=== PATIENT | female | born 1970 | race Caucasian/White ===

== ENCOUNTER → 2018-11-14 | Outpatient (CLI) | payer OTHER ==
--- NOTE | 2018-11-14 19:43 | MR ---
MRI CERVICAL SPINE: CLINICAL HISTORY: Paresthesia of skin per order. Headache with neck pain causing burning sensation in to left forearm for years per patient. TECHNIQUE: Multiplanar, multisequence imaging of the cervical spine is performed without IV contrast. COMPARISON: None. FINDINGS: Sagittal images of the cervical spine show the craniocervical junction to appear within nor mal limits. The cervical and upper thoracic spinal cord is normal in course, caliber, and signal. V ertebral alignment is straightened with grade 1 retrolisthesis of C4 on C5, C5 on C6, and C6 on C7. The vertebral body heights are normal. Mild to moderate disc space narrowing C4-C5 through C6-C7 leve ls is seen with mild anterior and posterior spurring. The bone marrow signal intensity is within nor mal limits. Axial images show the C2-C3 level to appear within normal limits. Axial images at the C3-C4 level shows central disc protrusion effacing anterior thecal sac on axial i mage 35, bilateral neural foramina are mildly narrowed due to small foraminal disc herniations bilate rally. Axial images at C4-C5 level shows broad-based posterior spur disc complex effacing anterior thecal sa c and causing mild to moderate left greater than right bilateral neural foraminal narrowing. Axial images at C5-C6 level shows a left paracentral/foraminal spur disc complex effacing ventral the elia sac and causing asymmetric moderate left-sided neural foraminal narrowing. Axial images at the C6-C7 level shows broad-based disc protrusion with central and left foraminal dis c protrusion component effacing the anterior thecal sac and causing moderate to advanced left greater than right bilateral neural foraminal narrowing. Axial images at C7-T1 level are felt within normal limits. IMPRESSION: Multilevel spondylolisthesis and degenerative changes C3-C4 through C6-C7 level causing a symmetric more prominent left-sided neural foraminal narrowing as detailed above.
== END | disposition home or self-care (01) ==
LOC: RADMRIMAIN 14:44
PROVIDERS: ATTEND Physical Medicine & Rehabilitation
DX: M99.71 Connective tissue and disc stenosis of intervertebral foramina of cervical region (principal); M43.12 Spondylolisthesis, cervical region; M47.812 Spondylosis without myelopathy or radiculopathy, cervical region
CPT/HCPCS: 72141